=== PATIENT | male | born 2000 | race Caucasian/White ===

== ENCOUNTER 2023-04-03 21:15 | Emergency (ER) | payer BC ==
[2023-04-03] MEDS ORDERED: Acetaminophen 325 MG Tab PO ONE (21:25)
== END 2023-04-03 23:27 | disposition home or self-care (01) ==
LOC: MW.ED 21:15
DX: S06.0X1A Concussion with loss of consciousness of 30 minutes or less, initial encounter (principal); S02.40DA Maxillary fracture, left side, initial encounter for closed fracture; Z88.1 Allergy status to other antibiotic agents; Z88.5 Allergy status to narcotic agent; Z88.8 Allergy status to other drugs, medicaments and biological substances; Y04.0XXA Assault by unarmed brawl or fight, initial encounter
CPT/HCPCS: 70450; 72125; 99284; A9270

== ENCOUNTER 2023-04-28 22:53 | Emergency (ER) | payer BC | END 2023-04-29 01:00 | disposition home or self-care (01) | LOC: MW.ED 22:53 | DX: S41.112A Laceration without foreign body of left upper arm, initial encounter (principal); R21 Rash and other nonspecific skin eruption; Z88.1 Allergy status to other antibiotic agents; Z88.5 Allergy status to narcotic agent; Z88.8 Allergy status to other drugs, medicaments and biological substances; Y08.89XA Assault by other specified means, initial encounter | CPT/HCPCS: 99282; 99283 ==

== ENCOUNTER 2023-06-05 13:16 | Emergency (ER) | payer BC ==
[2023-06-05] MEDS ORDERED: Sodium Chloride 0.9% 1,000 ML IV STA (13:56)
[2023-06-05] MEDS ORDERED: Ketorolac 30 MG/ML SDV IVPUSH STA (13:56)
[2023-06-05] MEDS ORDERED: Sodium Chloride 0.9% 10 ML Syringe FLUSH PRN (13:56)
[2023-06-05] MEDS ORDERED: Sodium Chloride 0.9% 2.5 ML Syringe FLUSH PRN (13:56)
[2023-06-05 14:27] LABS: BASOPHILS PERCENT AUTO 0.4 % (0.0-1.5); EOSINOPHILS ABSOLUTE AUTO 0.1 K/uL (0.0-0.7); HEMATOCRIT 39.7 % (38.0-50.0); HEMOGLOBIN 13.6 g/dL (13.0-17.0); LYMPHOCYTES ABSOLUTE AUTO 1.3 K/uL (0.6-2.4); LYMPHOCYTES PERCENT AUTO 27.1 % (16.0-40.0); MEAN CORPUSCULAR HEMOGLOBIN 30.1 pg (27.0-32.0); MEAN CORPUSCULAR HGB CONC 34.3 g/dL (31.0-37.0); MEAN CORPUSCULAR VOLUME 87.8 fL (80.0-98.0); MONOCYTES ABSOLUTE AUTO 0.5 K/uL (0.0-0.8); MONOCYTES PERCENT AUTO 11.2 % (0.0-15.0); NEUTROPHILS ABSOLUTE AUTO 2.9 K/uL (1.4-5.7); NEUTROPHILS PERCENT AUTO 60.3 % (48.0-80.0); NRBC ABSOLUTE 0 K/uL; PLATELET COUNT,PLT 258 K/uL (150-400); RED BLOOD CELL COUNT 4.52 M/uL (4.50-5.90); WHITE BLOOD CELL COUNT,WBC 4.83 K/uL (4.0-11.0)
[2023-06-05 14:54] LABS: A/G RATIO 1.1 (0.9-1.6); ALBUMIN 4.3 g/dL (3.4-5.0); BILIRUBIN TOTAL 0.4 mg/dL (0.2-1.0); CALCIUM 8.9 mg/dL (8.5-10.1); CARBON DIOXIDE,CO2 28.8 mmol/L (21.0-32.0); CREATININE 0.9 mg/dL (0.8-1.3); EST CRCL DRUG DOSING (CG) 133.28 mL/min; POTASSIUM,K 3.9 mmol/L (3.5-5.1); PROTEIN TOTAL,TP 8.2 g/dL (6.4-8.2)
[2023-06-05] MEDS ORDERED: Lidocaine 4% 1 each Patch TOP STA (14:59)
[2023-06-05] MEDS ORDERED: Alum Hydro/Mag Hydro/Simeth XS 15 ML, Lidocaine 2% 5 ML PO STA ×2 (15:19)
[2023-06-05] MEDS ORDERED: Iopamidol 755 MG/ML 500 ML Multipack Bottle IVPUSH STA (15:23)
[2023-06-05] MEDS ORDERED: Acetaminophen 500 MG Tab PO STA (15:53)
== END 2023-06-05 16:18 | disposition home or self-care (01) ==
LOC: MW.ED 13:16
DX: R10.84 Generalized abdominal pain (principal); Z88.1 Allergy status to other antibiotic agents; Z88.5 Allergy status to narcotic agent; Z88.8 Allergy status to other drugs, medicaments and biological substances
CPT/HCPCS: 36415; 74177; 80053; 83690; 85025; 96361; 96374; 99284; A9270; J1885; J3490; J7030; Q9967

== ENCOUNTER 2023-06-06 03:21 | Inpatient (IN) | payer BC ==
[2023-06-06] MEDS ORDERED: Sodium Chloride 0.9% 2.5 ML Syringe FLUSH PRN ×2 (03:27→10:49)
[2023-06-06] MEDS ORDERED: HYDROmorphone 1 MG/ML Syringe IVPUSH ONE ×2 (03:27→07:22)
[2023-06-06] MEDS ORDERED: Ondansetron 4 MG/2 ML SDV IVPUSH ONE (03:27)
[2023-06-06] MEDS ORDERED: Sodium Chloride 0.9% 10 ML Syringe FLUSH PRN ×2 (03:27→10:49)
[2023-06-06] MEDS ORDERED: Famotidine 20 MG/2 ML SDV IVPUSH ONE (03:27)
[2023-06-06] MEDS ORDERED: Sodium Chloride 0.9% 1,000 ML IV SCH ×2 (04:15→08:30)
[2023-06-06 04:19] LABS: BASOPHILS PERCENT AUTO 0.1 % (0.0-1.5); EOSINOPHILS PERCENT AUTO 0.2 % (0.0-7.0); HEMATOCRIT 39.6 % (38.0-50.0); HEMOGLOBIN 13.5 g/dL (13.0-17.0); LYMPHOCYTES ABSOLUTE AUTO 0.7 K/uL (0.6-2.4); MEAN CORPUSCULAR HEMOGLOBIN 30.3 pg (27.0-32.0); MEAN CORPUSCULAR HGB CONC 34.1 g/dL (31.0-37.0); MEAN CORPUSCULAR VOLUME 88.8 fL (80.0-98.0); MONOCYTES ABSOLUTE AUTO 0.8 K/uL (0.0-0.8); MONOCYTES PERCENT AUTO 8.6 % (0.0-15.0); NEUTROPHILS ABSOLUTE AUTO 7.5 K/uL (1.4-5.7); NEUTROPHILS PERCENT AUTO 83.1 % (48.0-80.0); NRBC ABSOLUTE 0 K/uL; PLATELET COUNT,PLT 262 K/uL (150-400); RED BLOOD CELL COUNT 4.46 M/uL (4.50-5.90); WHITE BLOOD CELL COUNT,WBC 9.03 K/uL (4.0-11.0)
[2023-06-06 04:28] LABS: LACTIC ACID 0.7 mmol/L (0.4-2.0)
[2023-06-06 04:38] LABS: A/G RATIO 1.1 (0.9-1.6); BILIRUBIN TOTAL 0.6 mg/dL (0.2-1.0); CARBON DIOXIDE,CO2 28.7 mmol/L (21.0-32.0); CREATININE 0.9 mg/dL (0.8-1.3); EST CRCL DRUG DOSING (CG) 137.44 mL/min; POTASSIUM,K 4.3 mmol/L (3.5-5.1); PROTEIN TOTAL,TP 7.7 g/dL (6.4-8.2)
[2023-06-06] MEDS ORDERED: Dicyclomine 10 MG Cap PO ONE (05:04)
[2023-06-06] MEDS ORDERED: Sucralfate 1 GM Tab PO ONE (05:04)
[2023-06-06] MEDS ORDERED: Ketorolac 30 MG/ML SDV IVPUSH ONE (05:04)
[2023-06-06] MEDS ORDERED: Diatrizoate Meglumine/Diatrizoate Sodium 37% 30 ML Bottle PO ONE (05:51)
[2023-06-06] MEDS ORDERED: Iopamidol 755 MG/ML 500 ML Multipack Bottle IVPUSH ONE (05:51)
[2023-06-06] MEDS: Ondansetron 4 MG/2 ML SDV IVPUSH PRN ×2 (07:32→16:45)
[2023-06-06] MEDS ORDERED: Lidocaine 2% Viscous Solution 15 ML UD PO ONE (08:55)
[2023-06-06] MEDS ORDERED: LORazepam 2 MG/ML SDV IVPUSH ONE (08:55)
[2023-06-06] MEDS ORDERED: Naloxone 0.4 MG/ML SDV IVPUSH PRN (10:49)
[2023-06-06] MEDS ORDERED: Promethazine 25 MG/ML SDV IM PRN (10:49)
[2023-06-06] MEDS ORDERED: HYDROmorphone 1 MG/ML Syringe IVPUSH PRN (10:49)
[2023-06-06] MEDS ORDERED: Sodium Chloride 0.9% 20 ML SDV IV PRN (10:49)
[2023-06-06] MEDS: Pantoprazole 40 MG in Sodium Chloride 0.9% 10 ML IVPUSH SCH ×2 (12:39→16:50)
[2023-06-06] MEDS: Lactated Ringers 1,000 ML IV SCH (17:01)
[2023-06-06] MEDS: HYDROmorphone 2 MG/ML Syringe IVPUSH PRN ×2 (18:16→22:49)
[2023-06-06] MEDS ORDERED: HYDROmorphone 2 MG/ML Syringe ONE (22:46)
[2023-06-07] MEDS: Lactated Ringers 1,000 ML IV SCH ×3 (01:07→18:12)
[2023-06-07] MEDS: HYDROmorphone 2 MG/ML Syringe IVPUSH PRN ×5 (03:52→20:26)
[2023-06-07 06:23] LABS: BASOPHILS PERCENT AUTO 0.2 % (0.0-1.5); EOSINOPHILS PERCENT AUTO 0.6 % (0.0-7.0); HEMATOCRIT 42.2 % (38.0-50.0); HEMOGLOBIN 14.2 g/dL (13.0-17.0); LYMPHOCYTES ABSOLUTE AUTO 0.8 K/uL (0.6-2.4); LYMPHOCYTES PERCENT AUTO 11.9 % (16.0-40.0); MEAN CORPUSCULAR HEMOGLOBIN 30.1 pg (27.0-32.0); MEAN CORPUSCULAR HGB CONC 33.6 g/dL (31.0-37.0); MEAN CORPUSCULAR VOLUME 89.4 fL (80.0-98.0); MONOCYTES ABSOLUTE AUTO 0.7 K/uL (0.0-0.8); MONOCYTES PERCENT AUTO 10.3 % (0.0-15.0); NEUTROPHILS ABSOLUTE AUTO 5.1 K/uL (1.4-5.7); NRBC ABSOLUTE 0 K/uL; PLATELET COUNT,PLT 274 K/uL (150-400); RED BLOOD CELL COUNT 4.72 M/uL (4.50-5.90); WHITE BLOOD CELL COUNT,WBC 6.63 K/uL (4.0-11.0)
[2023-06-07 06:34] LABS: ALBUMIN 3.8 g/dL (3.4-5.0); BILIRUBIN TOTAL 0.8 mg/dL (0.2-1.0); CALCIUM 8.8 mg/dL (8.5-10.1); CARBON DIOXIDE,CO2 29.1 mmol/L (21.0-32.0); CREATININE 0.8 mg/dL (0.8-1.3); EST CRCL DRUG DOSING (CG) 165.07 mL/min; MAGNESIUM 1.9 mg/dL (1.8-2.4); POTASSIUM,K 4.5 mmol/L (3.5-5.1); PROTEIN TOTAL,TP 7.6 g/dL (6.4-8.2)
[2023-06-07] MEDS: Pantoprazole 40 MG in Sodium Chloride 0.9% 10 ML IVPUSH SCH ×2 (06:40→16:38)
[2023-06-07] MEDS ORDERED: Phenol 1.4% Oral Spray 177 ML Bottle MUCMEM PRN (08:52)
[2023-06-08] MEDS: HYDROmorphone 2 MG/ML Syringe IVPUSH PRN ×2 (00:14→06:01)
[2023-06-08] MEDS: Ondansetron 4 MG/2 ML SDV IVPUSH PRN ×3 (00:23→21:03)
[2023-06-08] MEDS: Lactated Ringers 1,000 ML IV SCH ×2 (02:25→18:11)
[2023-06-08 06:36] LABS: BASOPHILS PERCENT AUTO 0.2 % (0.0-1.5); EOSINOPHILS PERCENT AUTO 0.7 % (0.0-7.0); HEMATOCRIT 41.8 % (38.0-50.0); HEMOGLOBIN 14.3 g/dL (13.0-17.0); LYMPHOCYTES PERCENT AUTO 18.1 % (16.0-40.0); MEAN CORPUSCULAR HEMOGLOBIN 30.2 pg (27.0-32.0); MEAN CORPUSCULAR HGB CONC 34.2 g/dL (31.0-37.0); MEAN CORPUSCULAR VOLUME 88.2 fL (80.0-98.0); MONOCYTES ABSOLUTE AUTO 0.8 K/uL (0.0-0.8); MONOCYTES PERCENT AUTO 14.2 % (0.0-15.0); NEUTROPHILS ABSOLUTE AUTO 3.8 K/uL (1.4-5.7); NEUTROPHILS PERCENT AUTO 66.8 % (48.0-80.0); NRBC ABSOLUTE 0 K/uL; PLATELET COUNT,PLT 259 K/uL (150-400); RED BLOOD CELL COUNT 4.74 M/uL (4.50-5.90); WHITE BLOOD CELL COUNT,WBC 5.65 K/uL (4.0-11.0)
[2023-06-08 06:40] LABS: ALBUMIN 3.7 g/dL (3.4-5.0); BILIRUBIN TOTAL 1.1 mg/dL (0.2-1.0); CALCIUM 9.1 mg/dL (8.5-10.1); CARBON DIOXIDE,CO2 29.4 mmol/L (21.0-32.0); CREATININE 0.9 mg/dL (0.8-1.3); EST CRCL DRUG DOSING (CG) 146.73 mL/min; POTASSIUM,K 4.2 mmol/L (3.5-5.1); PROTEIN TOTAL,TP 7.5 g/dL (6.4-8.2)
[2023-06-08] MEDS: Pantoprazole 40 MG in Sodium Chloride 0.9% 10 ML IVPUSH SCH ×2 (07:37→16:56)
[2023-06-08] MEDS ORDERED: HYDROmorphone 1 MG/ML Syringe IVPUSH ONE (12:38)
[2023-06-08] MEDS: HYDROmorphone 1 MG/ML Syringe IVPUSH PRN ×2 (16:48→21:27)
[2023-06-09] MEDS ORDERED: Diatrizoate Meglumine/Diatrizoate Sodium 37% 30 ML Bottle PO ONE (02:30)
[2023-06-09] MEDS: Lactated Ringers 1,000 ML IV SCH ×2 (02:45→09:59)
[2023-06-09] MEDS: HYDROmorphone 1 MG/ML Syringe IVPUSH PRN ×2 (03:20→09:57)
[2023-06-09] MEDS: Ondansetron 4 MG/2 ML SDV IVPUSH PRN (05:46)
[2023-06-09 05:53] LABS: HEMATOCRIT 40.2 % (38.0-50.0); HEMOGLOBIN 13.8 g/dL (13.0-17.0); MEAN CORPUSCULAR HEMOGLOBIN 29.9 pg (27.0-32.0); MEAN CORPUSCULAR HGB CONC 34.3 g/dL (31.0-37.0); NRBC ABSOLUTE 0 K/uL; PLATELET COUNT,PLT 280 K/uL (150-400); RED BLOOD CELL COUNT 4.62 M/uL (4.50-5.90); WHITE BLOOD CELL COUNT,WBC 5.35 K/uL (4.0-11.0)
[2023-06-09 06:13] LABS: BAND ABSOLUTE MAN 0.1; BAND PERCENT MAN 1 %; LYMPHOCYTES ABSOLUTE MAN 1.4 (0.6-2.4); LYMPHOCYTES PERCENT MAN 26 % (16.0-40.0); MONOCYTES ABSOLUTE MAN 0.5 (0.0-0.8); MONOCYTES PERCENT MAN 9 % (0.0-15.0); SEG NEUTROPHILS ABSOLUTE MAN 3.4 (1.4-5.7); SEG NEUTROPHILS PERCENT MAN 64 % (48.0-80.0)
[2023-06-09 06:25] LABS: BILIRUBIN TOTAL 1.1 mg/dL (0.2-1.0); CALCIUM 9.1 mg/dL (8.5-10.1); CARBON DIOXIDE,CO2 28.4 mmol/L (21.0-32.0); CREATININE 0.8 mg/dL (0.8-1.3); EST CRCL DRUG DOSING (CG) 165.07 mL/min; POTASSIUM,K 3.8 mmol/L (3.5-5.1)
[2023-06-09] MEDS: Pantoprazole 40 MG in Sodium Chloride 0.9% 10 ML IVPUSH SCH (06:49)
== END 2023-06-09 12:30 | DRG 247 ==
LOC: MW.ED 03:21 → MW.MS 10:08 → OBSVTOIN 06-07 12:27 → MW.MS 06-07 13:05
PROVIDERS: ADMIT Family Medicine; ATTEND Family Medicine
PROC: 0D9670Z Drainage of Stomach with Drainage Device, Via Natural or Artificial Opening (ICD-10-PCS; principal; 2023-06-07)
DX: K56.690 Other partial intestinal obstruction (principal); J45.909 Unspecified asthma, uncomplicated; F17.210 Nicotine dependence, cigarettes, uncomplicated; Z88.5 Allergy status to narcotic agent; Z88.8 Allergy status to other drugs, medicaments and biological substances; Z79.899 Other long term (current) drug therapy; Z87.828 Personal history of other (healed) physical injury and trauma; Z18.89 Other specified retained foreign body fragments
CPT/HCPCS: 36415; 43752; 71045; 71045-26; 74019; 74019-26; 74177; 74177-26; 74250; 74250-26; 80053; 82947; 83605; 83690; 83735; 85025; 96361; 96374; 96375; 96376; 99222; 99231; 99239; 99284; 99285-25; A9270-GY; C9113; G0378; J1170; J1885; J2060; J2405; J3490; J7030; J7120; Q9963; Q9967

== ENCOUNTER 2023-11-22 04:28 | Emergency (ER) | payer BC ==
[2023-11-22] MEDS: Lidocaine 1% with EPINEPHrine 1:200,000 30 ML SDV INFILT STA (04:41)
== END 2023-11-22 06:35 | disposition home or self-care (01) ==
LOC: MW.ED 04:28
DX: S62.304A Unspecified fracture of fourth metacarpal bone, right hand, initial encounter for closed fracture (principal); S62.306A Unspecified fracture of fifth metacarpal bone, right hand, initial encounter for closed fracture; S61.411A Laceration without foreign body of right hand, initial encounter; Z88.5 Allergy status to narcotic agent; Z88.8 Allergy status to other drugs, medicaments and biological substances; Y04.2XXA Assault by strike against or bumped into by another person, initial encounter
CPT/HCPCS: 29125; 73110; 73130; 99283; J3490

== ENCOUNTER 2023-11-25 10:21 | Day surgery (SDC) | payer BC ==
[~2023-11-25 10:21] MED LIST: Clindamycin Phosphate in D5W 600 MG in Premix Bag 1 BAG IV ONE
[2023-11-25] MEDS ORDERED: fentaNYL 50 MCG/ML SDV IVPUSH PRN (12:34)
[2023-11-25] MEDS ORDERED: HYDROmorphone 1 MG/ML Syringe IVPUSH PRN (12:34)
[2023-11-25] MEDS ORDERED: Propofol 200 MG/20 ML SDV ONE (12:34)
[2023-11-25] MEDS ORDERED: Metoclopramide 10 MG/2 ML SDV IVPUSH PRN (12:34)
[2023-11-25] MEDS ORDERED: Morphine 10 MG/ML SDV ONE (12:34)
[2023-11-25] MEDS ORDERED: droPERidol 5 MG/2 ML SDV IVPUSH PRN (12:34)
[2023-11-25] MEDS ORDERED: Naloxone 0.4 MG/ML SDV IVPUSH PRN (12:34)
[2023-11-25] MEDS ORDERED: Albuterol 0.083% 2.5 MG/3 ML Neb Soln NEB PRN (12:34)
[2023-11-25] MEDS ORDERED: Ondansetron 4 MG/2 ML SDV IVPUSH PRN (12:34)
[2023-11-25] MEDS: Lactated Ringers 1,000 ML IV SCH (12:55)
[2023-11-25] MEDS ORDERED: fentaNYL 250 MCG/5 ML SDV ONE (13:01)
[2023-11-25] MEDS ORDERED: Bupivacaine 0.25% 30 ML SDV ONE (13:26)
[2023-11-25] MEDS ORDERED: ceFAZolin 2 GM Vial ONE (13:35)
[2023-11-25] MEDS ORDERED: Ondansetron 4 MG/2 ML SDV ONE (13:45)
[2023-11-25] MEDS ORDERED: Ketorolac 30 MG/ML SDV ONE (13:45)
[2023-11-25] MEDS ORDERED: Dexamethasone 4 MG/ML 5 ML MDV ONE (13:49)
[2023-11-25] MEDS: oxyCODONE 5 MG Tab PO ONE (15:14)
== END 2023-11-25 15:40 | disposition home or self-care (01) ==
LOC: MW.SDS 10:21
PROVIDERS: ATTEND Orthopaedic Surgery
DX: S62.304A Unspecified fracture of fourth metacarpal bone, right hand, initial encounter for closed fracture (principal); F17.200 Nicotine dependence, unspecified, uncomplicated; X58.XXXA Exposure to other specified factors, initial encounter; Z88.0 Allergy status to penicillin; Z88.5 Allergy status to narcotic agent
CPT/HCPCS: 26608; 76000; A9270; J0131; J0665; J0736; J1100; J1885; J2405; J2704; J3010; J7120; 01810; C1769; J0690; J2270; J3490

== ENCOUNTER 2024-03-05 10:47 | Emergency (ER) | payer BC ==
[2024-03-05] MEDS: traMADol 50 MG Tab PO ONE (11:19)
== END 2024-03-05 12:13 | disposition home or self-care (01) ==
LOC: MW.ED 10:47
DX: S83.92XA Sprain of unspecified site of left knee, initial encounter (principal); Z88.0 Allergy status to penicillin; Z88.1 Allergy status to other antibiotic agents; Z88.5 Allergy status to narcotic agent; Z88.8 Allergy status to other drugs, medicaments and biological substances; Z75.8 Other problems related to medical facilities and other health care; W22.8XXA Striking against or struck by other objects, initial encounter
CPT/HCPCS: 73562; 99283; A9270